=== PATIENT | male | born 1960 | race Caucasian/White ===

== ENCOUNTER 2018-03-05 16:31 | Outpatient (CLI) | payer BC, SELFPAY ==
[2018-03-05] MEDS: Omnipaque 350 MG/ML 100 ML BTL IJ (15:05)
--- NOTE | 2018-03-05 15:15 | DI.CT_ITS ---
SYMPTOMS/DIAGNOSIS: SYNCOPE, R55.9, I16.1, HYPERTENSIVE EMERGENCY, EDEMA, R60.9 , T70.20XA,UNSPECIFIC EFFECT HIGH ALTITUDE CTA OF THE BRAIN: CT angiography was performed with multi slice acquisition and multi planar and 3D reconstruction. CT angiography of the brain was performed following the uneventful administration of intravenous contrast material. There are no priors for comparison. The distal internal carotid arteries are unremarkable. No evidence of aneurysm, dissection, occlusion or significant stenosis is present. The distal vertebral arteries and basilar artery are unremarkable. No evidence of dissection, occlusion, aneurysm or significant stenosis is present. The anterior cerebral arteries are unremarkable without evidence of occlusion, aneurysm or significant stenosis. The middle cerebral arteries are unremarkable without evidence of occlusion, aneurysm or significant stenosis. The posterior cerebral arteries are unremarkable without evidence of significant stenosis, occlusion or aneurysm. The visualized paranasal sinuses are clear. The mastoid air cells are well pneumatized. The calvarium is intact. IMPRESSION: Unremarkable CT angiography of the brain.
== END 2018-03-05 16:51 ==
PROVIDERS: PCP Family Medicine; Visit Provider Internal Medicine
DX: R55 Syncope and collapse (principal); I16.1 Hypertensive emergency; R60.9 Edema, unspecified
CPT/HCPCS: 70496; J3490